=== PATIENT | male | born 1945 | race Caucasian/White ===

== ENCOUNTER → 2018-09-09 | Outpatient (CLI) | payer OTHER ==
[~2018-09-09] MED LIST: NABUMETONE500 MG PO; PERCOCET 5/3251 TAB PO
== END | disposition home or self-care (01) ==
LOC: NUCLEAR 07:00
DX: R07.89 Other chest pain (principal)
CPT/HCPCS: 78452; 93017; A9500

== ENCOUNTER → 2018-10-28 | Outpatient (CLI) | payer OTHER | END | disposition home or self-care (01) | LOC: NUCLEAR 07:00 | DX: I48.2 Chronic atrial fibrillation (principal) ==

== ENCOUNTER 2019-02-13 14:31 | Outpatient (CLI) | payer OTHER ==
[~2019-02-13] VITALS: Ht 162.6 cm; Wt 71.2 kg
== END 2019-02-13 14:45 | disposition home or self-care (01) ==
LOC: OFIC 805 14:31
DX: H61.22 Impacted cerumen, left ear (principal); H93.13 Tinnitus, bilateral

== ENCOUNTER 2019-08-16 20:12 | Emergency (ER) | payer OTHER ==
[~2019-08-16] VITALS: Ht 162.6 cm; Wt 71.2 kg
[2019-08-16] MEDS ORDERED: ZETIA10 MG (21:07)
[2019-08-16] MEDS ORDERED: ENALAPRIL MALE2.5 MG (21:07)
[2019-08-16] MEDS ORDERED: KAPSPARGO SPRIN25 MG (21:07)
[2019-08-16] MEDS ORDERED: HUMALOG100 UNIT/2 (21:08)
[2019-08-16] MEDS ORDERED: FENOFIBRATE150 MG (21:08)
[2019-08-16] MEDS ORDERED: CYTOMEL5 MCG (21:08)
[2019-08-16] MEDS ORDERED: LEVOXYL125 MCG (21:08)
[2019-08-16] MEDS ORDERED: ELIQUIS5 MG (21:09)
[2019-08-16] MEDS ORDERED: LANTUS SOL100 UNIT/1 (21:09)
[2019-08-16] MEDS ORDERED: CALTRATE 600 +1 EACH (21:09)
[2019-08-16] MEDS ORDERED: ADRENOID CAPSU1 EACH (21:10)
== END 2019-08-17 06:33 | disposition home or self-care (01) ==
LOC: ER 20:12 → CPU-OBS 20:32 → ER 08-17 06:33
DX: R07.89 Other chest pain (principal)
CPT/HCPCS: G0378; G0379; 93005

== ENCOUNTER 2020-04-16 15:37 | Outpatient (CLI) | payer OTHER ==
[~2020-04-16 15:37] MED LIST changes: +ADRENOID CAPSU1 EACH; +CALTRATE 600 +1 EACH; +CYTOMEL5 MCG; +ELIQUIS5 MG; +ENALAPRIL MALE2.5 MG; +FENOFIBRATE150 MG; +HUMALOG100 UNIT/2; +KAPSPARGO SPRIN25 MG; +LANTUS SOL100 UNIT/1; +LEVOXYL125 MCG; +ZETIA10 MG
== END 2020-04-16 16:00 | disposition home or self-care (01) ==
LOC: OFIC 805 15:37
PROVIDERS: ATTEND Otolaryngology
DX: J30.89 Other allergic rhinitis (principal); H93.13 Tinnitus, bilateral; H61.22 Impacted cerumen, left ear; H81.13 Benign paroxysmal vertigo, bilateral

== ENCOUNTER 2020-07-09 14:33 | Outpatient (CLI) | payer OTHER | END 2020-07-09 15:20 | disposition home or self-care (01) | LOC: OFIC 805 14:33 | PROVIDERS: ATTEND Otolaryngology | DX: J30.89 Other allergic rhinitis (principal); H93.13 Tinnitus, bilateral; H61.22 Impacted cerumen, left ear ==

== ENCOUNTER 2020-09-20 07:23 | Outpatient (CLI) | payer OTHER | END 2020-09-20 08:09 | disposition home or self-care (01) | LOC: NUCLEAR 07:23 | PROVIDERS: ATTEND Internal Medicine Cardiovascular Disease | DX: I25.9 Chronic ischemic heart disease, unspecified (principal); I50.20 Unspecified systolic (congestive) heart failure | CPT/HCPCS: 78452; 93017; A9500 ==

== ENCOUNTER 2024-01-28 12:09 | Outpatient (CLI) | payer OTHER | END 2024-01-28 12:12 | disposition home or self-care (01) | LOC: NUCLEAR 12:09 | PROVIDERS: ATTEND Internal Medicine Cardiovascular Disease | DX: I10 Essential (primary) hypertension (principal); I11.9 Hypertensive heart disease without heart failure ==

== ENCOUNTER 2024-11-17 07:10 | Outpatient (CLI) | payer OTHER | END 2024-11-17 07:11 | disposition home or self-care (01) | LOC: NUCLEAR 07:10 | PROVIDERS: ATTEND Internal Medicine | DX: I20.9 Angina pectoris, unspecified (principal) | CPT/HCPCS: 78452; 93017; A9500 ==